=== PATIENT | female | born 1970 | race African-American/Black ===

== ENCOUNTER → 2016-12-16 | Outpatient (CLI) | payer OTHER ==
[~2016-12-16] MED LIST: ALLI; MAXZIDE 75/50 T1 TAB PO; PRILOSEC PO
--- NOTE | ~2016-12-16 | MY11 ---
[facility] A Service of [facility] RADIOLOGY TEXT RESULTS PATIENT: BROCK WARD R LOCATION: [facility] : 70 UNIT #: [id number] AGE: [address]: Stephanie Martinez MD SEX: F ORDER DR: [id number] [facility] [address] [place], [place] [address] [id number] MR#: [id number] Acc #: [id number] NAME: BROCK WARD : 1970 SEX: F STUDY DATE/TIME: 12/16/2016 9:59 UNIT: [facility] ROOM: STUDY DESCRIPTION: MY Mammogram Screening Dig Crow Attending Physician: Stephanie Martinez M.D. Ordering Physician: Stephanie Martinez M.D. Primary Care Physician: Stephanie Martinez M.D. MEDICAL IMAGING REPORT This report is preliminary unless electronic signature is present EXAM Bilateral digital screening mammogram with CAD, 12/16/2016 HISTORY 46-year-old female with family history of breast cancer in her grandmother. No personal history of breast cancer or current complaints. COMPARISON Bilateral screening mammogram 11/13/2014, 05/17/2013, 04/05/2012. FINDINGS CC and MLO views were obtained of each breast utilizing digital technique and reviewed with an FDA-approved CAD device. Scattered fibroglandular densities are present bilaterally. No new or suspicious nodule, architectural distortion or clustered microcalcification is seen. There is no abnormal skin thickening or nipple retraction. IMPRESSION Routine screening mammogram is recommended in one year. Patients over the age of 40 are entered into a reminder system with target due date for the next mammogram. A result letter will also be sent to the patient. BIRADS: 1 Negative Dictated by... Cheryl Rodgers M.D. THIS IS AN ELECTRONICALLY VERIFIED REPORT Cheryl Rodgers M.D. at 12/17/2016 7:24 AM [facility] A Service of [facility] RADIOLOGY TEXT RESULTS PATIENT: BROCK WARD LOCATION: [facility] #: [id number] : 70 UNIT #: [id number] AGE: [address]: Stephanie Martinez MD SEX: F ORDER DR: TAMI/umang TD: 12/16/2016 14:11 JOB #: [id number] MEDICAL IMAGING REPORT Page 1 of 1 COPY
== END | disposition home or self-care (01) ==
LOC: CWCC 09:49
DX: Z12.31 Encounter for screening mammogram for malignant neoplasm of breast (principal); Z80.3 Family history of malignant neoplasm of breast
CPT/HCPCS: G0202